=== PATIENT | male | born 1995 | race American Indian/Alaskan Native ===

== ENCOUNTER 2022-02-20 01:30 | Emergency (ER) | payer OTHER ==
[2022-02-20 01:42] VITALS: BP 140/81
--- NOTE | 2022-02-20 02:06 | ED Physician Documentation ---
PD HPI HEENT - Stated complaint Stated Complaint: MOUTH/EAR/THROAT PX - Chief complaint Chief Complaint: Heent - History obtained from History obtained from: Patient - Additional information Additional information: PresentPatient is a 26-year-old male with no significant past medical history presenting for evaluation of multiple concerns. Patient reports having intermittent tinnitus for at least 2 months but has had this problem in the past. 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 He currently denies having tinnitus.He also expresses concerns regarding his tonsils. He felt he had a tonsil infection last year and since that time feels that the redness never improved. At times he feels irritation in his throat. He also complains of feeling pain in his jaw at times and was told by [facility] that it was likely TMJ and just recently in the last week was given a bite guard which she has been using without significant improvement. This evening he just felt that something was wrong and started to poke around in his neck and thought he felt a mass that he did not feel on the other side. This prompted him to come to the emergency department for evaluation.He denies fever, current sore throat, trouble swallowing or breathing, chest pain, headache, abdominal pain, vomiting. Review of Systems Constitutional: denies: Fever Ears: reports: Tinnitus/ringing Nose: denies: Congestion Throat: denies: Swollen tonsils Cardiac: denies: Chest pain / pressure, Palpitations Respiratory: denies: Dyspnea, Cough GI: denies: Abdominal Pain, Nausea, Vomiting Musculoskeletal: denies: Neck pain, Back pain Neurologic: denies: Headache PD PAST MEDICAL HISTORY - Past Medical History Past Medical History: No Cardiovascular: None Respiratory: None Neuro: None Endocrine/Autoimmune: None GI: None : None HEENT: None Psych: None Musculoskeletal: None Derm: None - Past Surgical History Past Surgical History: No - Present Medications Home Medications: Ambulatory Orders Medication Instructions Recorded Confirmed No Known Home Medications 02/20/22 02/20/22 - Allergies Allergies/Adverse Reactions: Allergies Allergy/AdvReac Type Severity Reaction Status Date / Time No Known Drug Allergies Allergy Verified 02/20/22 01:42 - Social History Does the pt smoke?: No Smoking Status: Never smoker Does the pt drink ETOH?: No Does the pt have substance abuse?: No - Immunizations Immunizations are current?: Yes - POLST Patient has POLST: No PD ED PE NORMAL - General General: Alert and oriented X 3, No acute distress, Well developed/nourished - HEENT HEENT: Atraumatic, PERRL, EOMI, Ears normal, Moist mucous membranes, Pharynx benign, Other (No oral swelling, tonsils are normal in size with no exudate, no signs of peritonsillar abscess,No massOr abnormalities felt on deep palpation of bilateral neck spaces) - Neck Neck: Supple, no meningeal sign, No bony TTP, No adenopathy, Thyroid normal, No JVD, No bruit - Cardiac Cardiac: RRR, No murmur, Strong equal pulses - Respiratory Respiratory: No respiratory distress, Clear bilaterally - Derm Derm: Normal color, No rash - Extremities Extremities: No deformity, No edema - Neuro Neuro: Alert and oriented X 3, No motor deficit, Normal speech - Psych Psych: Normal mood, Normal affect Results - Vitals Vitals: Vital Signs - 24 hr 02/20/22 02/20/22 01:38 01:54 Temperature 36.4 C L Heart Rate 83 Respiratory 16 14 Rate Blood Pressure 140/81 H O2 Saturation 100 Oxygen O2 Source Room air PD MEDICAL DECISION MAKING - ED course ED course: Patient presenting for evaluation of possible mass in his neck that he thought he felt at home earlier this evening. Patient denied any complaints but at times feels that something is wrong in his body and will poke around to see if there is anything abnormal. Patient was feeling in his neck space tonight and thought he felt a mass which she could not feel on the other side. I was not able to appreciate any abnormalities on my exam. There is no obvious swelling to the neck, no palpable mass, no signs of cellulitis or infection, no signs of airway compromise Or vascular anomaly. The patient was reassured and instructed to follow-up with [facility] [employer] regarding his other chronic concerns. Patient was also advised on strict return precautions. Departure - Departure Disposition: 01 Home, Self Care Clinical Impression: Throat irritation, Tinnitus of both ears Condition: Stable Instructions: Tinnitus Comments: Osmar you are evaluated for multiple concerns this evening including possibly feeling a mass in your neck. On my exam I was not able to palpate any abnormalitiesAnd also could not visualize any swelling to the neck area.Your tonsils were evaluated and appeared to be normal in size without signs of infection. Your breathing appears to be normal. Your ears are clear. You do have a history of tinnitus and it may be beneficial for you to be referred to an ear nose and throat doctor. Please continue to follow-up with your doctors through [facility] and follow the recommendations including using the bite guard for your jaw pain and abstain from vaping. If you develop any new symptoms such as fever, trouble breathing, obvious swelling or you have any concerns please return to the emergency department.
== END 2022-02-20 02:15 | disposition home or self-care (01) ==
LOC: ED 01:30
DX: H93.13 Tinnitus, bilateral (principal); R07.0 Pain in throat
CPT/HCPCS: 99281; 99282

== ENCOUNTER 2023-01-12 13:22 | Outpatient (CLI) | payer OTHER ==
[2023-01-12 16:50] VITALS: BP 128/80
--- NOTE | 2023-01-12 16:50 | SLEEP CARE CONSULTATION ---
Information from patient questionnaire entered by Freda Diaz. I have reviewed and concur with the information entered by Freda Diaz. This document represents the service I personally performed and the decisions made by me, Heather Gann MD, [facility]. History of Present Illness Service Date and Time: 01/12/2023 1322 Reason for Visit: New patient Chief Complaint: reports: Insomnia, Unrefreshed sleep, Snoring, Excessive daytime sleepiness, Observed pauses in breathing, Fatigue, Frequent awakenings at night Date of Onset: 1HR Usual bedtime: 10-12PM Time it takes to fall asleep: VARIES Snores at night: Yes Observed to quit breathing while asleep: Yes Sleeps alone due to snoring: No Number of times waking at night: 1-3 Reasons for waking at night: reports: Bathroom, Other (NOISE, NIGHTMARES) Toss, Turn, or Twitch while sleeping: Yes Recalls having dreams: Yes Usually gets out of bed at: 3-11AM Feels refreshed in the morning: No Morning headache: Yes (AFTER TAKING MEDS) Sleepy or fatigued during the day: Yes Ever fallen asleep while driving: Yes Takes day naps: Yes Dreams during day naps: Yes Prior sleep studies: No Additional HPI information: I had the pleasure of seeing Mr. Ojeda today regarding the possibility of him having a sleep disorder. As you know, he is a 27-year-old gentleman who complains of insomnia, loud snore, observed apneas, frequent awakenings, unrefreshed sleep, and excessive daytime sleepiness for about a year. The patient tells me that he normally goes to bed around 10 pm 2 am, and it takes him variable amount of time to fall asleep. He has been told that he snores loudly and irregularly at night. He has also been observed to stop breathing in his sleep. His can still sleep in the same bed. He can recall waking up on the average of 1 - 3 times during the night. Most of the time he wakes up because of having to use the bathroom and noises. He has never awakened because of his own snoring, choking, or having to gasp for air. There is a lot of tossing and turning in his sleep. He has somniloquy (sleep talking) and somnambulism (sleep walking). Generally, he can recall having dreams, which include nightmares. In the morning he usually gets up out of the bed around 8 - 11 a.m. not feeling refreshed nor rested. He usually has a morning headache. During the day he complains of feeling does not feel sleepy and fatigued. His score on [place] Sleepiness Scale is 15 out of 24. He has fallen asleep while driving and has gone out of the adrian. He usually takes naps during the day. He reports having impaired concentration during the day. - Parasomnia Symptoms Ever been unable to move upon waking from sleep: Yes Walks in sleep: No Talks in sleep: Yes Ever acted out dreams in sleep: Yes Ever felt weak in the knees when startled or emotional: Yes Bothered by creepy, crawly, restless sensations in legs: Yes Problems with memory or concentration: No Subjective Initial [place] Sleepiness Scale score: 16 (01/04/23) Past Medical History Past Medical History: reports: Anxiety, Depression Social History The patient's occupation is a [employer]. Patient is and lives in . Have you smoked in the past 12 months: No Alcohol use: No Caffeine use: Yes Caffeine amount and frequency: 16 OZ EVERY OTHER DAY IF NOT DAILY Family History Family history of sleep disordered breathing: Yes Family Hx Sleep Apnea: Mother: Snoring, Sleep apnea - Untreated, Father: Snoring Allergies and Home Medications Known drug allergies: No Drug allergies reviewed: Yes Home medication list reviewed: Yes Allergy and home medication list: Allergies No Known Drug Allergies Allergy (Verified 02/20/22 01:42) Review of Systems Weight gain over past 5 years: 25 Cardiovascular: denies: high blood pressure, palpitations, chest pain, irregular heart rate or pulse, leg or foot swelling, have to sleep sitting up, other Respiratory: denies: shortness of breath, wheeze, sputum production, chronic cough, other Gastrointestinal: reports: heartburn, nausea, vomitting, abdominal pain Urinary: denies: incontinence, frequency, urgency, impotence, other Neurological: denies: headaches, seizure, head trauma, disorientation, speech dysfunction, gait or balance problems, fainting or unconsciousness, other Psychiatric: reports: anxiety, depression Ear/Nose/Throat: denies: nasal congestion, sinus problems, nose bleeds, dry mouth/throat, hoarseness, injury to nose, tonsillectomy, wisdom teeth removed, other Endocrine: reports: sluggishness Musculoskeletal: reports: neck pain, back pain Immunologic: denies: sneezing, rash, itching, allergies to food or environment, other Physical Exam Vital signs obtained and entered by: FREDA Gaviria MA Blood Pressure: 128/80 (LEFT ARM) Cuff size: regular Heart Rate: 75 O2 Saturation: 96 Height: 6 ft 1 in Weight: 252 lb Body Mass Index: 33.2 BMI Classification: Obese Neck circumference: 17 Mood/affect: Normal HEENT: No craniofacial malformation Nostrils: patent to airflow Turbinates: normal Septum: midline Mouth and throat: narrow oropharynx Soft palate: long Hard palate: normal Uvula: normal Uvula visualization: 50% Mallampati Class II Tongue: normal in size Tonsils: small Chin and jaw: normal size and position Neck: normal w/o lymphadenopathy or thyromegaly Heart: regular rate and rhythm Lungs: clear bilaterally Extremities: no edema or clubbing Neurologic: intact Impression and Plan IMPRESSION: 1. Obstructive Sleep Apnea-Hypopnea Syndrome, as suggested by history of loud and irregular snoring, observed cessation of breath while asleep, frequent awakenings during the night, unrefreshed sleep, morning headache, cognitive impairment, and daytime hypersomnolence. Narrow oropharynx and obesity are common predisposing factors for obstructive sleep apnea-hypopnea syndrome. I recommend proceeding to polysomnography to confirm the diagnosis and to assess severity. If he has significant sleep disordered breathing, a manual CPAP titration study will also be performed to find the optimal treatment pressure. I informed the patient of what the sleep studies involve and after some discussion, he agreed to proceed. Plan: 1. Schedule polysomnography + manual CPAP titration study and return in 1 to 2 weeks after the study to discuss result and initiate therapy. 2. Avoid long distance driving or when feeling sleepy. 3. Avoid alcohol, sedative and muscle relaxant around bedtime. 4. Attempt to lose weight. Follow up with [facility] in: 1-2 months Plan: in-lab PSG Visit Type: In Office Time Spent with Patient (minutes): 15 Provider Statement: I spent 100% of the Face to Face Visit with the patient with greater than 50% spent counseling the patient and coordination of care.
== END 2023-01-12 13:23 | disposition home or self-care (01) ==
LOC: SC 13:22
PROVIDERS: ATTEND Internal Medicine Pulmonary Disease
DX: R06.83 Snoring (principal); G47.50 Parasomnia, unspecified; F51.3 Sleepwalking [somnambulism]; G47.8 Other sleep disorders; R06.81 Apnea, not elsewhere classified; G47.10 Hypersomnia, unspecified; E66.9 Obesity, unspecified; Z68.33 Body mass index [BMI] 33.0-33.9, adult
CPT/HCPCS: 99202; 99212

== ENCOUNTER 2023-02-06 20:28 | Outpatient (CLI) | payer OTHER | END 2023-02-06 20:29 | disposition home or self-care (01) | LOC: SC 20:28 | PROVIDERS: ATTEND Internal Medicine Pulmonary Disease | DX: R06.83 Snoring (principal); G47.50 Parasomnia, unspecified; F51.3 Sleepwalking [somnambulism]; G47.8 Other sleep disorders; R06.81 Apnea, not elsewhere classified; G47.10 Hypersomnia, unspecified; E66.9 Obesity, unspecified; Z68.33 Body mass index [BMI] 33.0-33.9, adult | CPT/HCPCS: 95810 ==

== ENCOUNTER 2023-03-09 15:00 | Outpatient (CLI) | payer OTHER ==
--- NOTE | 2023-03-09 15:40 | SLEEP CARE CONSULTATION ---
Information from patient questionnaire entered by Freda Diaz. I have reviewed and concur with the information entered by Freda Diaz. This document represents the service I personally performed and the decisions made by me, Heather Gann MD, [facility] [place]. History of Present Illness Service Date and Time: 03/09/2023 1500 Initial [place] Sleepiness Scale score: 16 (01/04/23) Additional HPI information: Mr. Ojeda returned for follow up of the sleep study he had on 02/06/2023. The polysomnography showed that the patient had normal sleep efficiency. The sleep architecture was normal as well. Respiratory monitoring showed no significant sleep disordered breathing (AHI = 4.7) or hypoxia (marie oxygen saturation of 87 % and only 0.1% to the total sleep time was spent with oxygen saturation below 90%). The patient slept mostly supine (supine AHI = 5.2; non-supine = 0.00). Snore was loud in intensity. There was no significant periodic leg movement of sleep. Cardiac rhythm was normal sinus rhythm without significant arrhythmia. No abnormal behavior (parasomnia) observed during the night. The patient was informed of these findings. I explained to him that sleep study was normal. He agreed that his sleep here was better than usual. He now has to wake up at 7 am every day. He tries to go to bed at 10 pm. Sleep Study - Results Type of Sleep Study: Polysomnography (COMPLETED 02/06/23) Prior sleep studies: No Allergies and Home Medications Allergy and home medication list: Allergies No Known Drug Allergies Allergy (Verified 03/06/23 12:04) Review of Systems Review of systems same as previous: Yes Physical Exam Height: 6 ft 1 in Impression and Plan IMPRESSION: 1. Insomnia, due to excessive time spent in bed. It is better that he now has an earlier wake up time (he used to wake up between 8 and 11 am), but he still is going to bed too early. I recommend he goes to bed no earlier than 11 pm, assuming the normal sleep requirement of 8 hours a night. PLAN: 1. Maintain a regular wake up time and spend no more than 8 hours in bed at night. Avoid naps. 2. Avoid weight gain. 3. Avoid alcohol. 4. Return for a follow up on as needed basis. Counseling Topics: Weight control Follow up with [facility] in: as needed Visit Type: In Office Time Spent with Patient (minutes): 15 Provider Statement: I spent 100% of the Face to Face Visit with the patient with greater than 50% spent counseling the patient and coordination of care.
== END 2023-03-09 15:01 | disposition home or self-care (01) ==
LOC: SC 15:00
PROVIDERS: ATTEND Internal Medicine Pulmonary Disease
DX: G47.00 Insomnia, unspecified (principal); R06.83 Snoring
CPT/HCPCS: 99212